=== PATIENT | female | born 1965 | race Caucasian/White ===

== ENCOUNTER 2017-07-08 10:02 | Outpatient (CLI) | payer BC ==
[2017-07-08 10:21] LABS: Basophils % (Auto) 0.5 % (0.0-1.8); Eosinophils % (Auto) 1.8 % (0.0-4.3); Hematocrit 31.1 % (30.3-42.9); Hemoglobin 10.1 gm/dl (10.1-14.3); Mean Corpuscular HGB Conc 33 % (30-34); Mean Corpuscular Hemoglobin 28 pg (28-32); Mean Corpuscular Volume 87 fl (79-97); Platelet Count 274 K/mm3 (140-440); Red Blood Count 3.58 M/mm3 (3.65-5.03); Red Cell Distribution Width 19.8 % (13.2-15.2); White Blood Count 5.7 K/mm3 (4.5-11.0)
[2017-07-08 10:48] LABS: Alanine Aminotransferase 19 units/L (7-56); Albumin 4.1 g/dL (3.9-5); Albumin/Globulin Ratio 1.4 %; Alkaline Phosphatase 46 units/L (35-129); Anion Gap 21 mmol/L; BUN/Creatinine Ratio 16; Blood Urea Nitrogen 11 mg/dL (7-17); Calcium 9.2 mg/dL (8.4-10.2); Carbon Dioxide 22 mmol/L (22-30); Chloride 99.7 mmol/L (98-107); Glucose 93 mg/dL (65-100); Potassium 3.5 mmol/L (3.6-5.0); Sodium 139 mmol/L (137-145); Total Protein 7.1 g/dL (6.3-8.2); Uric Acid 4.2 mg/dL (3.5-7.6)
[2017-07-08 10:51] LABS: Erythrocyte Sedimentation Rate 35 mm/Hr (0-20)
== END 2017-07-08 10:03 | disposition home or self-care (01) ==
LOC: LAB 10:02
PROVIDERS: ATTEND Family Medicine
DX: Z00.01 Encounter for general adult medical examination with abnormal findings (principal); D50.9 Iron deficiency anemia, unspecified
CPT/HCPCS: 36415; 80053; 82306; 82607; 82747; 84443; 84550; 85025; 85652; 86140

== ENCOUNTER 2017-07-17 10:11 | Observation (INO) | payer BC ==
--- NOTE | 2017-07-13 14:03 | History and Physical Report ---
History of Present Illness Date of examination: 07/10/17 Chief complaint: Menorrhagia and anemia History of present illness: Past History : 2 Term Births: 2 Living Children: 2 # 1 Delivery type: # 2 Delivery date: 1991 Delivery type: VISUAL DESIGNER History Operations: x2 Tubal Ligation Abnormal PAP: negative Infection History Hx of STD: None Active Medications (reviewed today): OXYCODONE-ACETAMINOPHEN 5-325 MG ORAL TABLET (OXYCODONE-ACETAMINOPHEN) 1-2po q6h TAYTULLA 1-20 MG-MCG(24) ORAL CAPSULE (NORETHIN ISAIAH-ETH ESTRAD-FE) 1 tab po tid x3 days, 1 tab po bid x3days then qd IBUPROFEN 600 MG ORAL TABLET (IBUPROFEN) 1 po q6hrs as directed prn BYSTOLIC TABLET (NEBIVOLOL HCL TABS) prn TABLET ( VIT-FE FUMARATE-FA TABS) VITAMIN C 100 MG ORAL TABLET (ASCORBIC ACID) FERROUSUL 325 (65 Fe) MG ORAL TABLET (FERROUS SULFATE) Current Allergies (reviewed today): No known allergies Past Medical History: Reviewed history from 04/23/2017 and no changes required: Anemia Cardiac arrhytmia SVT Past Surgical History: Reviewed history from 04/23/2017 and no changes required: x2 Tubal Ligation Family History Summary: Reviewed history and no changes required: 07/13/2017 Other family member - Has No Family History of Biliary Tract Cancer - Entered On : 04/29/2017 Other family member - Has No Family History of Breast Cancer - Entered On: 04/29 Other family member - Has No Family History of Brain Cancer - Entered On: 2016 Other family member - Has No Family History of Colon Cancer - Entered On: 2016 Other family member - Has No Family History of DVT/PE on OCP - Entered On: 04/29 Other family member - Has No Family History of Kidney/Urinary Tract Cancer - Entered On: 04/29/2017 Other family member - Has No Family History of Ovarvian Cancer - Entered On: 05/2017 Other family member - Has No Family History of Pancreatic Cancer - Entered On: 04/29/2017 Other family member - Has No Family History of Stomach Cancer - Entered On: 05/2017 Other family member - Has No Family History of Small Bowel Cancer - Entered On: 04/29/2017 Other family member - Has No Family History of Uterine Cancer - Entered On: 05/2017 Social History: Reviewed history from 04/23/2017 and no changes required: Patient is Smoking History: Patient has never smoked. Risk Factors: PAP Smear History: Date of Last PAP Smear: 04/23/2017 Previous Tobacco Use: Signed On - 04/23/2017 Smoked Tobacco Use: Never smoker Drug use: no Previous Alcohol Use: Signed On - 04/23/2017 Alcohol use: yes Drinks per day: social Exercise: no PAP Smear History: Date of Last PAP Smear: 04/23/2017 Review of Systems General Denies fever, chills, sweats, anorexia, fatigue, weakness, malaise, weight loss and sleep disorder. Complains of menorrhagia. Denies vaginal discharge, incontinence, dysuria, hematuria, urinary frequency, amenorrhea, abnormal vaginal bleeding, pelvic pain, genital sores, decreased libido, painful periods, painful sex, urinary urgency, hot flashes, vaginal dryness, vaginal itching and vaginal odor. CV Denies chest pains, palpitations, syncope, dyspnea on exertion, orthopnea, PND and peripheral edema. Resp Denies cough, dyspnea at rest, excessive sputum, hemoptysis, wheezing and pleurisy. GI Denies nausea, vomiting, diarrhea, constipation, change in bowel habits, abdominal pain, melena, hematochezia, jaundice, gas/bloating, indigestion/ heartburn, dysphagia and odynophagia. Endo Denies cold intolerance, heat intolerance, polydipsia, polyphagia, polyuria and unusual weight change. Breast Denies left breast lump, right breast lump, nipple discharge, bloody discharge from nipple, breast pain, abnormal mammogram and breast enlargement. MS Denies back pain, joint pain, joint swelling, muscle cramps, muscle weakness, stiffness, arthritis, sciatica, restless legs, leg pain at night and leg pain with exertion. Derm Denies rash, itching, dryness and suspicious lesions. Neuro Denies paralysis, paresthesias, headache, seizures, tremors, vertigo, transient blindness, frequent falls, frequent headaches and difficulty walking. Psych Denies depression, anxiety, irritability and mood swings. Eyes Denies blurring, diplopia, irritation, discharge, vision loss, eye pain and photophobia. ENT Denies earache, ear discharge, tinnitus, decreased hearing, nasal congestion, nosebleeds, sore throat and hoarseness. Allergy Denies urticaria, allergic rash, hay fever and recurrent infections. Heme Denies abnormal bruising, bleeding and enlarged lymph nodes. Physical Exam Appearance: well developed, well nourished, no acute distress Other Exams Abdomen: soft, non-tender, no masses, Skin: no ulcers, xanthomas Extremities: normal alignment, no joint enlargement, crepitus, masses or tenderness; normal tone and strength Genitourinary Exam Vagina: normal appearance, no discharge, lesions. No evidence of cystocele or rectocele. Cervix: normal appearance,no discharge, ? cervical polyp Uterus: normal position, midline, mobile Adnexa: no masses or tenderness Impression & Recommendations: Problem # 1: Excessive and frequent menstruation with irregular cycle (ICD- 626.6) (XTG08-T70.1) Diagnosis explained to patient . Questions answered. Discussed with patient various medical and surgical therapies common for treatment: Hormonal/medical therapy,endometrial ablation or hysterectomy. She desires to proceed with hysterectomy Consent reviewed and signed . Possible laparoscopy or laparotomy explained to patient. The risks and alternatives for this surgery were reviewed with the patient. She was informed of possible bleeding, infection, injury to bowel, bladder, ureters or other adjacent organs. She was informed after her ovaries are removed she will be in menopause and she may not at increased risks for other morbidities and cancers. The patient was instructed/informed the following: The normal length of hospital stay for this procedure. Nothing to eat or drink after midnight the evening prior to surgery. Clear liquids the day before surgery. Fleets enema the day prior to surgery. Pre-op instruction sheets given. Wound care instructions given. Infection precautions reviewed, patient to call for any signs or symptoms of infection. The usual discomforts associated with this procedure were detailed. Proper use of pain medicines was reviewed. Patient was given ample opportunity to have all her questions answered before signing informed consent. Problem # 2: Anemia secondary to blood loss (chronic) (ICD-280.0) (QTU07-S36.0) Medications Added to Medication List This Visit: 1) Oxycodone-acetaminophen 5-325 Mg Oral Tablet (Oxycodone-acetaminophen) .... 1-2po q6h 2) Ibuprofen 600 Mg Oral Tablet (Ibuprofen) .... 1 po q6hrs as directed prn Prescriptions: IBUPROFEN 600 MG ORAL TABLET (IBUPROFEN) 1 po q6hrs as directed prn #30 x 1 Entered and Authorized by: Anahi Alvarado MD Method used: Print then Give to Patient RxID: [id number] OXYCODONE-ACETAMINOPHEN 5-325 MG ORAL TABLET (OXYCODONE-ACETAMINOPHEN) 1-2po q6h #30 x 0 Entered and Authorized by: Anahi Alvarado MD Method used: Print then Give to Patient RxID: [id number] Medications and Allergies Active Meds: Active Medications Cefazolin Sodium (Ancef/Sterile Water 2 Gm/20 Ml) 2 gm in 20 mls @ 80 mls/hr IV PREOP NR PRN Reason: Protocol Assessment and Plan - Patient Problems (1) Menorrhagia Status: Chronic (2) Anemia Status: Chronic Qualifiers: Iron deficiency anemia type: chronic blood loss
--- NOTE | 2017-07-16 10:33 | Anesthesia Consultation ---
Anesthesia Consult and Med Hx Date of service: 07/17/17 - Airway Anesthetic Teeth Evaluation: Good ROM Head & Neck: Adequate Mental/Hyoid Distance: Adequate Mallampati Class: Class II Intubation Access Assessment: Good - Pulmonary Exam CTA: Yes - Cardiac Exam Cardiac Exam: RRR - Pre-Operative Health Status ASA Pre-Surgery Classification: ASA2 Proposed Anesthetic Plan: General Nerve Block: TAP - Cardiovascular System Hx Cardia Arrhythmia: Yes (SVT) - Central Nervous System Hx Psychiatric Problems: No - Hematic Hx Anemia: Yes (past hx) - Other Systems Hx Alcohol Use: Yes (occas) Hx Cancer: No - Additional Comments Anesthesia Medical History Comments: H/O ? intrathecal air after epidural placement
[~2017-07-17 10:11] MED LIST: ANCEF/STERILE WATER 2 GM/20 ML 2 GM/20 ML SYRINGE IV NR; NACL 0.9% 1000 ML 1,000 ML IV SCH; NEURONTIN PO NR; PEPCID PO NR; SUBLIMAZE IV NR; TRANSDERM-SCOP TD NR; VERSED IV NR
[2017-07-17 11:00] LABS: Hematocrit 33.3 % (30.3-42.9); Hemoglobin 10.6 gm/dl (10.1-14.3); Mean Corpuscular HGB Conc 32 % (30-34); Mean Corpuscular Hemoglobin 28 pg (28-32); Mean Corpuscular Volume 86 fl (79-97); Platelet Count 297 K/mm3 (140-440); Red Blood Count 3.87 M/mm3 (3.65-5.03); Red Cell Distribution Width 20.5 % (13.2-15.2)
[2017-07-17] MEDS ORDERED: ZOFRAN IV PRN ×2 (11:00→16:51)
[2017-07-17] MEDS ORDERED: MORPHINE IV PRN ×3 (11:00→22:00)
[2017-07-17] MEDS ORDERED: DECADRON ONE ×2 (11:16→15:02)
[2017-07-17] MEDS ORDERED: MARCAINE 0.5% 30 ML INFILTRATI ONE ×2 (11:16→12:14)
[2017-07-17] MEDS ORDERED: XYLOCAINE 1% 20 mL ONE (11:17)
[2017-07-17] MEDS ORDERED: NEOSPORIN GU IR ONE ×2 (12:14→14:05)
[2017-07-17] MEDS ORDERED: METHYLENE BLUE ONE (12:17)
[2017-07-17] MEDS ORDERED: XYLOCAINE MPF 2% ONE (12:20)
[2017-07-17] MEDS ORDERED: ZEMURON IV ONE (12:21)
[2017-07-17] MEDS ORDERED: DILAUDID ONE (12:21)
[2017-07-17] MEDS ORDERED: DIPRIVAN 10 MG/ML IV ONE (12:22)
[2017-07-17] MEDS ORDERED: CALCIUM CHLORIDE IV ONE (12:35)
[2017-07-17] MEDS ORDERED: THROMBIN (BOVINE) TP ONE (12:35)
--- NOTE | 2017-07-17 12:37 | Anesthesia Day of Surgery ---
Anesthesia Day of Surgery - Day of Surgery Patient Examined: Yes Patient H&P Reviewed: Yes Patient is NPO: Yes
[2017-07-17] MEDS ORDERED: NACL 0.9% 1000 ML 1,000 ML ONE (13:26)
[2017-07-17] MEDS ORDERED: ePHEDrine SULFATE ONE (13:30)
[2017-07-17] MEDS ORDERED: NEO SYNEPHRINE/NS Syringe(OR USE) IV ONE ×2 (13:55→14:57)
[2017-07-17] MEDS ORDERED: NACL 0.9% IR ONE (14:05)
[2017-07-17] MEDS ORDERED: ZOFRAN ONE (15:02)
[2017-07-17] MEDS ORDERED: ROBINUL ONE (15:02)
[2017-07-17] MEDS ORDERED: NEOSTIGMINE ONE (15:02)
--- NOTE | 2017-07-17 15:56 | Post Operative Note ---
Pre-op diagnosis: menorrhagia, h/o anemia Post-op diagnosis: other (same with vaginal laceration) Procedure: RATH/ BSO Anesthesia: GETA Surgeon: FIDELINA ROSARIO Estimated blood loss: 50-100ml Pathology: list (uterus, cervix, tubes and ovaries) Specimen disposition: to lab Condition: stable Disposition: PACU
[2017-07-17] MEDS: MORPHINE IV PRN ×2 (16:40→16:55)
[2017-07-17] MEDS ORDERED: MORPHINE ONE ×2 (16:44→16:58)
[2017-07-17] MEDS ORDERED: TYLENOL PR PRN (16:51)
[2017-07-17] MEDS ORDERED: NARCAN 0.4 MG/1 ML IV PRN (16:51)
[2017-07-17] MEDS ORDERED: ANCEF/NS 1 GM/50 ML 1 GM/50 ML BAG IV SCH (16:51)
[2017-07-17] MEDS ORDERED: PERCOCET 5/325 PO PRN (16:51)
[2017-07-17] MEDS ORDERED: REGLAN IV PRN (16:51)
[2017-07-17] MEDS ORDERED: REGLAN PO PRN (16:51)
[2017-07-17] MEDS ORDERED: TORADOL IV ONE (16:55)
--- NOTE | 2017-07-17 18:01 | Post Anesthesia Evaluation ---
- Post Anesthesia Evaluation Patient Participated: Yes Airway Patent: Yes Stable Respiratory Function: Yes Nausea/Vomiting: No Temp > 96.8F: Yes Pain Manageable: Yes Adequeate Hydration: Yes Anesthesia Complications: No Block Receding Appropriately: Not Applicable Patient on Ventilator: No
[2017-07-17] MEDS: LACTATED RINGERS 1,000 ML IV SCH (18:27)
--- NOTE | 2017-07-17 19:08 | Operative Report ---
Operative Report Operative Report: Date: 07/17/2017 Preoperative diagnosis: 1. Menorrhagia unresponsive to medical management 2. History of anemia Postoperative diagnosis: 1. Menorrhagia unresponsive to medical management 2. History of anemia 3. Vaginal laceration Procedure: 1. Robotic-assisted laparoscopic total hysterectomy 2. Robotic-assisted laparoscopic bilateral salpingo-oophorectomy 3. Repair of vaginal laceration Surgeon: Anahi Alvarado MD Drag Seiner: Tawny Spain Anesthesiologist: Kathy Kerns M.D. Anesthesia: General endotracheal anesthesia EBL: Approximately 50 mL Findings: Exam under anesthesia was unremarkable. Uterus was sounded to approximately 10 cm. Extremely narrow proximal vagina. Grossly normal uterus, tubes and ovaries. Procedure: Patient was taken to the OR and placed in the supine position. General anesthesia was induced and an oral gastric tube was placed. Her neck and head were placed on foam support. Foam eye protection with goggles were secured in place. Then foam face protection was placed and secured. Foam shoulder pads were then positioned on her shoulders for Trendelenburg positioning. She was then placed in dorsolithotomy position. Exam under anesthesia as above. The abdomen and vagina were then prepped and draped in the usual sterile fashion. Timeout was performed. A Skaggs catheter was inserted into the bladder with drainage of clear yellow urine. The operative speculum was introduced into the vagina and the anterior lip of the cervix was grasped with single-toothed tenaculum. The uterus was sounded to 10 cm. The cervix was progressively dilated to allow the medium size V care uterine manipulator. The bulb of the manipulator was inflated and the speculum and tenaculum were removed. The cup of the manipulator was placed around the cervix and the blue occluder of the manipulator was properly positioned in the vagina. A laparotomy sponge that was saturated with a solution of polymyxin and saline was placed in the vagina to ensure pneumoperitoneum. Sterile gloves were placed and attention was turned to the abdomen. A 10 mm vertical supraumbilical incision was made approximately 10 cm superior to the elevated fundus of the uterus. A 12 mm trocar with the laparoscope and camera attached was introduced through this incision under direct visualization. The abdomen was insufflated. No obvious bowel, bladder, ureteral, or major vascular injury was noted. The patient was then placed in steep Trendelenburg position and the following trochars were placed under direct visualization: 8 mm robot trochars were placed through incisions made in the bilateral midclavicular lower abdominal region approximately 10 cm lateral and approximately 2 cm below the midline incision, and a 5 mm trocar was placed through an incision made in the right lower lateral pelvis approximately 2 cm superior to the iliac crest. The 10 mm laparoscope was then replaced by a 5 mm laparoscope that was placed through the 5 millimeter lateral trocar. At this point Dr. Isaac was present to inspect the anterior abdominal wall. Dr. Isaac states she will speak with the patient after she's been discharged concerning findings of anterior abdominal wall. The 12 mm trocar was then removed in the Gallo Red fascial closure device was placed through the incision and a 0 Vicryl was placed through the fascia. Once the suture was secured the 12 mm trocar was reintroduced. Once the trochars were in the appropriate positions, the da Shyla robot system was engaged. The EndoShears and bipolar device was placed through the 8 mm trochars and positioned then attention was turned to the console. Then the utero-ovarian ligaments were clamped. cauterized and incised bilaterally using 30 W of energy. Then the round ligaments were clamped, cauterized and incised bilaterally. The anterior leaf of the broad ligament was elevated and careful blunt and sharp dissection the bladder flap was created and dissected away from the lower uterine segment and cervix. The posterior leaf of the broad ligament was dissected away from the uterine vessels. The cup of the uterine manipulator was palpated both anteriorly and posteriorly. Course of the ureters was visualized and was confirmed to be away from the operative field. The uterine vessels were then clamped and cauterized bilaterally. Blanching of the uterus was then noted. Attention was again turned to the anterior lower uterine segment and the bladder was confirmed to be away from the operative field. Then attention was turned again to the posterior where the cup of the manipulator was palpated and a colpotomy was performed down to the cup. The incision was extended in the lateral position the uterine vessels that were again clamped and cauterized and incised. Continuing along the cup of the manipulator in a circumferential manner the colpotomy was completed. Sterile gloves were placed. The uterus and cervix were then removed through the vaginal incision. There was some difficulty with removing the cervix and uterus from the vagina because of the narrowing of the proximal vagina and the tenacula continue to tear through the uterine and cervical tissue suggesting possible adenomyosis. Once cervix and uterus are removed attention was again turned to the console where bilateral salpingo-oophorectomy was performed. Both tubes and ovaries were removed through the vagina. The pelvis was irrigated with warm normal saline. The proximal laceration on the left lateral aspect of the vagina was visualized. A moist laparotomy sponge was placed in the vagina to maintain pneumoperitoneum. The vagina cuff was reapproximated using V LOC 180 suture in a simple running stitch. Then a J stitch was performed to secure the suture. Again the pelvis was copiously irrigated with polymixin in warm normal saline. The laparotomy sponge was removed from the vagina. No bowel, bladder, ureteral or major vascular injury was noted. Once hemostasis was noted, platelet rich plasma was applied to the operative field to ensure hemostasis. Then platelet poor plasma was applied to the operative field to decrease formation of adhesions. Again hemostasis was noted. Grossly normal appendix was noted. Then the instruments were removed, the robot was disengaged. The 12 mm trocar was removed and the fascia was ligated with the 0 Vicryl suture that was placed at the beginning of the procedure. The patient was taken out of Trendelenburg position, the abdomen was desufflated, the remaining trochars were removed. Incisions were reapproximated using 4-0 Vicryl in a subcuticular manner. The vaginal laceration was then approximated using 3-0 Vicryl in a running interlocking stitch fashion. Hemostasis was noted. Clear yellow urine was draining into the Skaggs bag from the bladder at the end of the procedure. Patient was taken to recovery room in stable condition.
--- NOTE | 2017-07-17 19:50 | Event Note ---
Date: 07/17/17 Patient is resting in bed. She is easily arousable. Response to questions appropriately. States she does not want Morphine but would rather try Percocet for pain control. Plan for pain management was discussed. Operative findings and procedures were explained. She was informed of the vaginal laceration that occur while removing the uterus and cervix through the vagina. Questions were encouraged and answered. She was given the following discharge instructions: 1. Ambulate approximately 1 mile on your property a day 2. Do not exercise 3. No sex 4. No driving 5. Eat small meals frequently 6. Drinks 64 ounces of water a day 7. Void frequently to avoid having pressure on the vaginal cuff.
[2017-07-17] MEDS: TORADOL IV SCH (22:09)
[2017-07-17] MEDS: PEPCID IV SCH (22:09)
[2017-07-17] MEDS: ceFAZolin 1 GM in NACL 0.9% 20 ML IV SCH (22:20)
[2017-07-18] MEDS: LACTATED RINGERS 1,000 ML IV SCH (01:51)
[2017-07-18] MEDS: TYLENOL PO SCH ×2 (02:00→08:00)
[2017-07-18] MEDS: TORADOL IV SCH ×2 (04:01→12:30)
[2017-07-18 06:03] LABS: Hematocrit 29.9 % (30.3-42.9); Hemoglobin 9.6 gm/dl (10.1-14.3)
--- NOTE | 2017-07-18 07:02 | Discharge Summary ---
Providers - Providers Date of Admission: 07/17/17 15:40 Date of discharge: 07/18/17 Attending physician: FIDELINA ROSARIO Primary care physician: SONIDO ZHOU Hospitalization Condition: Good Procedures: RATH/BSO, repair of vaginal laceration Hospital course: uncomplicated Disposition: DC-01 TO HOME OR SELFCARE - Discharge Diagnoses (1) Menorrhagia Status: Chronic (2) Anemia Status: Chronic Qualifiers: Iron deficiency anemia type: chronic blood loss (3) History of robot-assisted laparoscopic hysterectomy Status: Acute (4) S/P bilateral salpingo-oophorectomy Status: Acute Core Measure Documentation - Palliative Care Palliative Care/ Comfort Measures: Not Applicable - Core Measures Any of the following diagnoses?: none Exam - Constitutional Vitals: Temp Pulse Resp BP Pulse Ox 98.5 F 62 18 103/42 96 07/18/17 02:25 07/18/17 02:25 07/18/17 02:25 07/18/17 02:25 07/17/17 19:25 General appearance: Present: no acute distress - Respiratory Respiratory effort: normal Respiratory: bilateral: CTA - Cardiovascular Rhythm: regular - Extremities Extremities: no ischemia, No edema - Abdominal General gastrointestinal: Present: soft, non-tender, non-distended, normal bowel sounds - Integumentary Integumentary: Present: clear, warm, dry. Absent: erythema (Incisions: c/d/i) - Psychiatric Psychiatric: appropriate mood/affect, intact judgment & insight Plan Weight Bearing Status: Full Weight Bearing Diet: regular Wound: open to air, keep clean and dry Special Instructions: no heavy lifting (>25#) Additional Instructions: 1. Ambulate approximately 1 mile on your property a day. 2. Do not exercise. 3. No sex. 4. No driving. 5. Eat small meals frequently. 6. Drinks 64 ounces of water a day. 7. Void frequently to avoid having pressure on the vaginal cuff. Follow up with: FIDELINA ROSARIO MD [Staff Physician] - 7 Days SONIDO ZHOU MD [Primary Care Provider] - 7 Days Prescriptions: metroNIDAZOLE [Metronidazole] 500 mg PO BID #14 tablet
[2017-07-18] MEDS: ceFAZolin 1 GM in NACL 0.9% 20 ML IV SCH (08:00)
[2017-07-18] MEDS: PEPCID IV SCH (09:30)
[2017-07-18 14:52] VITALS: BP 91/37
== END 2017-07-18 16:00 | disposition home or self-care (01) ==
LOC: OR 10:11 → OB 15:40 → EEVIPCON 15:40
PROVIDERS: ADMIT Obstetrics & Gynecology; ATTEND Obstetrics & Gynecology
DX: N92.0 Excessive and frequent menstruation with regular cycle (principal); S31.41XA Laceration without foreign body of vagina and vulva, initial encounter; D64.9 Anemia, unspecified; X58.XXXA Exposure to other specified factors, initial encounter; Y92.89 Other specified places as the place of occurrence of the external cause; Y93.89 Activity, other specified; Y99.8 Other external cause status; Z98.890 Other specified postprocedural states; Z90.722 Acquired absence of ovaries, bilateral
CPT/HCPCS: 36415; 57200; 58571; 64450; 81025; 85014; 85018; 85027; 86850; 86900; 86901; 88307; 96374; 96375; 96376; A4217; G0378; J0690; J1100; J1170; J1885; J2250; J2270; J2370; J2405; J2704; J2710; J3010; J7030; J7120; S2900; 88302; Q9968

== ENCOUNTER 2019-03-08 10:12 | Outpatient (CLI) | payer BC ==
[2019-03-08 10:54] LABS: Basophils % (Auto) 0.5 % (0.0-1.8); Eosinophils % (Auto) 0.8 % (0.0-4.3); Hematocrit 40.4 % (30.3-42.9); Lymphocytes # (Auto) 2.7 K/mm3 (1.2-5.4); Lymphocytes % (Auto) 50.9 % (13.4-35.0); Mean Corpuscular HGB Conc 35 % (30-34); Mean Corpuscular Volume 88 fl (79-97); Monocytes # (Auto) 0.4 K/mm3 (0.0-0.8); Monocytes % (Auto) 7.5 % (0.0-7.3); Platelet Count 204 K/mm3 (140-440); Red Blood Count 4.62 M/mm3 (3.65-5.03); Red Cell Distribution Width 13.9 % (13.2-15.2)
[2019-03-08 11:12] LABS: Erythrocyte Sedimentation Rate 6 mm/Hr (0-20)
[2019-03-08 11:15] LABS: Alanine Aminotransferase 12 units/L (7-56); Albumin 4.2 g/dL (3.9-5); BUN/Creatinine Ratio 20; Blood Urea Nitrogen 14 mg/dL (7-17); Calcium 9.5 mg/dL (8.4-10.2); Chol/HDL Ratio 3.58 %; HDL Cholesterol 53 mg/dL (40-59); Hemolysis Index 5; LDL Cholesterol,Direct 141 mg/dL (50-130); Uric Acid 5.6 mg/dL (3.5-7.6)
[2019-03-12 14:25] LABS: Vitamin D, 25-OH, D2 5 ng/mL
== END 2019-03-08 10:13 | disposition home or self-care (01) ==
LOC: LAB 10:12
PROVIDERS: ATTEND Family Medicine
DX: Z00.01 Encounter for general adult medical examination with abnormal findings (principal)
CPT/HCPCS: 36415; 80053; 80061; 82306; 82607; 82627; 82672; 82747; 83001; 83036; 84144; 84443; 84550; 85025; 85652; 86140

== ENCOUNTER 2019-03-15 08:30 | Day surgery (SDC) | payer BC ==
[2019-03-15] MEDS ORDERED: NACL 0.9% 1000 ML 1,000 ML IV SCH (10:18)
--- NOTE | 2019-03-15 11:25 | Anesthesia Day of Surgery ---
Anesthesia Day of Surgery - Day of Surgery Patient Examined: Yes Patient H&P Reviewed: Yes Patient is NPO: Yes
--- NOTE | 2019-03-15 11:26 | Anesthesia Consultation ---
Anesthesia Consult and Med Hx Date of service: 03/15/19 - Airway Anesthetic Teeth Evaluation: Good (IMPLANT) ROM Head & Neck: Adequate Mental/Hyoid Distance: Adequate Mallampati Class: Class II Intubation Access Assessment: Good - Pre-Operative Health Status ASA Pre-Surgery Classification: ASA2 Proposed Anesthetic Plan: MAC - Cardiovascular System Hx Cardia Arrhythmia: Yes (SVT-last episode five years ago) - Central Nervous System Hx Psychiatric Problems: No - Hematic Hx Anemia: Yes (past hx) - Other Systems Hx Alcohol Use: Yes (occas) Hx Cancer: No
[2019-03-15] MEDS ORDERED: DIPRIVAN 10 MG/ML IV ONE ×2 (11:48→11:49)
[2019-03-15] MEDS ORDERED: INFANTS' GAS RELIEF PO ONE ×2 (11:59→12:01)
--- NOTE | 2019-03-15 12:11 | Short Stay Summary ---
Short Stay Documentation Date of service: 03/15/19 Narrative H&P: The patient presents for her first screening colonoscopy. Average risks. - History Past Medical History: No medical history Past Surgical History: hysterectomy Social history: no significant social history, , lives with family, no smoking, no alcohol abuse - Allergies and Medications Current Medications: Allergies latex Allergy (Verified 07/15/17 08:46) rash, oozing Active Medications Sodium Chloride (Nacl 0.9% 1000 Ml) 1,000 mls @ 50 mls/hr IV DIRECT NETTE - Physical exam General appearance: no acute distress, well-nourished Integumentary: no rash, no growths, no abnormal pigmentation HEENT: Atraumatic, PERRLA, EOMI, Mucous membr. moist/pink Lungs: Clear to auscultation, Normal air movement Breasts: deferred Heart: Regular rate, Normal S1, Normal S2, No murmurs Gastrointestinal: normoactive bowel sounds, no tenderness, no distended, no masses, no guarding, no organomegaly, no obese Female Genitourinary: deferred Rectal Exam: normal exam-external/orifice, normal rectal tone, no mass Extremities: no ischemia, pulses intact, pulses symmetrical, No edema, normal temperature, normal color, Full ROM Neurological: Normal gait, Normal speech, Strength at 5/5 X4 ext, Normal tone, Sensation intact, Cranial nerves 3-12 NL - Brief post op/procedure progress note Date of procedure: 03/15/19 Findings: see dictation Estimated blood loss: none Pathology: none Condition: stable - Disposition Condition at discharge: Good Disposition: DC-01 TO HOME OR SELFCARE - Discharge Diagnoses (1) Colon cancer screening Status: Acute Short Stay Discharge Plan Activity: other (no driving for 24 hours) Weight Bearing Status: Full Weight Bearing Diet: regular Follow up with: SONIDO ZHOU MD [Primary Care Provider] - 7 Days
--- NOTE | 2019-03-15 12:12 | Operative Report ---
Operative Report Operative Report: Date of procedure: 03/15/2019 Preprocedure diagnosis: Colon cancer screening, no prior studies. Average risk. Post procedure diagnosis: Normal study Procedure: Colonoscopy to the cecum Endoscopist: Dr. Snowden Anesthesia: Monitored anesthesia care per anesthesia department Estimated blood loss: 0 Medications: Monitored anesthesia care. See separate report by anesthesia for details. After careful discussion of the nature and purpose of the procedure as well as details of the technique risks benefits and alternatives the patient gave consent. Please see recent history and physical from the office. The patient was placed in the left lateral decubitus position and medicated per anesthesia. A rectal exam was performed sphincter tone was normal there were no masses palpable. The Trunityn 570 scope was passed transanally and advanced under continuous direct vision without difficulty to the cecum. The colon was well prepared. The cecum was normal. The ascending colon was normal and on forward and retroflexed views. The transverse colon, descending colon, and sigmoid colon were normal. The rectum was normal on forward and retroflexed views. The procedure was well-tolerated overall and the patient was observed in recovery. Conclusions: Normal colonoscopy to the cecum. Plan: Repeat colonoscopy in 10 years. Signed electronically: Jone Snowden M.D.
[2019-03-15] MEDS ORDERED: WATER FOR IRRIG STERILE IR ONE (12:45)
[2019-03-15 17:05] VITALS: BP 103/54
== END 2019-03-15 08:31 | disposition home or self-care (01) ==
LOC: GIO 08:30
PROVIDERS: ATTEND Internal Medicine Gastroenterology
DX: Z12.11 Encounter for screening for malignant neoplasm of colon (principal); G43.909 Migraine, unspecified, not intractable, without status migrainosus; I42.9 Cardiomyopathy, unspecified; Z79.899 Other long term (current) drug therapy; Z91.040 Latex allergy status; Z98.890 Other specified postprocedural states; Z90.722 Acquired absence of ovaries, bilateral; Z90.710 Acquired absence of both cervix and uterus; Z98.891 History of uterine scar from previous surgery; Z72.89 Other problems related to lifestyle; Z86.2 Personal history of diseases of the blood and blood-forming organs and certain disorders involving the immune mechanism
CPT/HCPCS: 45378; J2704; J7030

== ENCOUNTER 2019-11-18 09:58 | Outpatient (CLI) | payer BC ==
--- NOTE | 2019-11-18 12:04 | Magnetic Resonance Report ---
MRI RIGHT HAND WITHOUT CONTRAST INDICATION / CLINICAL INFORMATION: MAIN: PAINFUL SWOLLEN JOINTS/rheumatoid arthritis, BILATERAL HAND PAIN, SWELLING, AND STIFFNESS X 3 M ONTHS Patient motion, sequences repeated . TECHNIQUE: Multiplanar, multisequence MR images were obtained. COMPARISON: None available. FINDINGS: Bone marrow signal is unremarkable. There is mild degenerative change at the thumb carpometacarpal articulation. Joint spaces are otherwi se maintained. No periarticular edema is seen. No joint effusion. No erosions are identified. No soft tissue fluid collections. Denser and flexor tendons are unremarkable without tenosynovitis. IMPRESSION: 1. No MRI evidence of inflammatory arthropathy. 2. Osteoarthrosis type degenerative change, mild, at the thumb CMC joint. MRI LEFT HAND WITHOUT CONTRAST INDICATION / CLINICAL INFORMATION: MAIN: PAINFUL SWOLLEN JOINTS/rheumatoid arthritis, BILATERAL HAND PAIN, SWELLING, AND STIFFNESS X 3 M ONTHS Patient motion, sequences repeated . TECHNIQUE: Multiplanar, multisequence MR images were obtained. COMPARISON: None available. FINDINGS: Bone marrow signals unremarkable. No osseous erosions are seen. There is mild osteoarthrosis change at the thumb carpometacarpal articulation. Joint spaces are other monroy maintained. No joint effusions are seen. No significant soft tissue edema. Flexor and extensor tendons are unremarkable without tenosynovitis. IMPRESSION: 1. No MRI evidence of inflammatory arthropathy. 2. Mild osteoarthrosis type degenerative change at the thumb CMC joint. Signer Name: Tera Ojeda MD Signed: 11/18/2019 12:00 PM Workstation Name: [id number]
== END 2019-11-18 09:59 | disposition home or self-care (01) ==
LOC: MRI 09:58
PROVIDERS: ATTEND Family Medicine
DX: M19.042 Primary osteoarthritis, left hand (principal); M19.041 Primary osteoarthritis, right hand

== ENCOUNTER 2020-03-08 07:27 | Outpatient (CLI) | payer BC ==
[2020-03-08 08:38] LABS: Basophils % (Auto) 0.5 % (0.0-1.8); Eosinophils # (Auto) 0.1 K/mm3 (0.0-0.4); Eosinophils % (Auto) 1.2 % (0.0-4.3); Hematocrit 40.1 % (30.3-42.9); Hemoglobin 13.4 gm/dl (10.1-14.3); Lymphocytes # (Auto) 2.6 K/mm3 (1.2-5.4); Lymphocytes % (Auto) 47.9 % (13.4-35.0); Mean Corpuscular HGB Conc 33 % (30-34); Mean Corpuscular Volume 88 fl (79-97); Monocytes # (Auto) 0.4 K/mm3 (0.0-0.8); Monocytes % (Auto) 7.8 % (0.0-7.3); Platelet Count 202 K/mm3 (140-440); Red Blood Count 4.57 M/mm3 (3.65-5.03); Red Cell Distribution Width 14.4 % (13.2-15.2)
[2020-03-08 09:04] LABS: Erythrocyte Sedimentation Rate 7 mm/Hr (0-20)
--- NOTE | 2020-03-08 09:05 | XRay Report ---
BILATERAL HAND 6 VIEW(S) INDICATION / CLINICAL INFORMATION: PSORIATIC ARTHRITIS COMPARISON: None available. FINDINGS: BONES / JOINT(S): No acute fracture or subluxation. Mild bilateral thumb CMC degenerative arthrosis, right greater than left. No osseous erosions. SOFT TISSUES: No significant abnormality. ADDITIONAL FINDINGS: None. Signer Name: Peter Cunha MD Signed: 03/08/2020 9:01 AM Workstation Name: [id number]
[2020-03-08 09:06] LABS: Alanine Aminotransferase 16 units/L (7-56); Albumin 4.4 g/dL (3.9-5); BUN/Creatinine Ratio 19; Blood Urea Nitrogen 15 mg/dL (7-17); Calcium 9.6 mg/dL (8.4-10.2); Chol/HDL Ratio 3.55 %; HDL Cholesterol 54 mg/dL (40-59); Hemolysis Index 5; LDL Cholesterol,Direct 133 mg/dL (50-130); Uric Acid 5.5 mg/dL (3.5-7.6)
== END 2020-03-08 07:28 | disposition home or self-care (01) ==
LOC: LAB 07:27
PROVIDERS: ATTEND Family Medicine
DX: M19.041 Primary osteoarthritis, right hand (principal); M19.042 Primary osteoarthritis, left hand; L40.50 Arthropathic psoriasis, unspecified
CPT/HCPCS: 36415; 80053; 80061; 82306; 82607; 82747; 83036; 84443; 84550; 85025; 85652; 86140; 86200; 86431

== ENCOUNTER 2020-07-27 09:33 | Outpatient (CLI) | payer BC ==
--- NOTE | 2020-07-27 10:19 | XRay Report ---
CHEST 2 VIEWS INDICATION / CLINICAL INFORMATION: COUGH. COMPARISON: None available. FINDINGS: SUPPORT DEVICES: None. HEART / MEDIASTINUM: No significant abnormality. LUNGS / PLEURA: Clear lungs. No significant pleural effusion. No pneumothorax. ADDITIONAL FINDINGS: No significant additional findings. IMPRESSION: 1. No acute abnormality of the chest. Signer Name: David Ritchie MD Signed: 07/27/2020 10:15 AM Workstation Name: [id number]
== END 2020-07-27 09:34 | disposition home or self-care (01) ==
LOC: ECHO 09:33
PROVIDERS: ATTEND Internal Medicine
DX: R07.9 Chest pain, unspecified (principal); R00.2 Palpitations; E78.49 Other hyperlipidemia
CPT/HCPCS: 71046; 93005; 93306

== ENCOUNTER 2020-08-30 09:27 | Outpatient (CLI) | payer BC ==
--- NOTE | 2020-08-30 19:24 | Cardiac Catherization Report ---
STRESS EKG REPORT INDICATION FOR PROCEDURE: This being performed on 55-year-old female for evaluation of chest pain. Baseline EKG showed a sinus rhythm at a rate of 59 beats per minute, within normal limits. The patient exercised for 10 minutes and 7 seconds on standard Michael protocol. Attained a heart rate of 176 per minute, which is more than predicted maximal heart rate. Test was stopped due to shortness of breath and tiredness, but no chest pain. No EKG changes to suggest ischemia. Blood pressure response is appropriate with resting blood pressure of 98/56. Peak blood pressure was 139/65. FINAL IMPRESSION: 1. Very good exercise tolerance. 2. Negative for angina and negative for ischemia on the EKG. 3. Appropriate blood pressure response. No arrhythmia noted. JOB# [id number] LILLIE/LILLIAN
== END 2020-08-30 09:28 | disposition home or self-care (01) ==
LOC: CARD 09:27
PROVIDERS: ATTEND Internal Medicine
DX: R07.89 Other chest pain (principal); R00.2 Palpitations; E78.49 Other hyperlipidemia
CPT/HCPCS: 93017

== ENCOUNTER 2021-04-15 09:18 | Outpatient (CLI) | payer BC ==
[2021-04-15 10:40] LABS: Basophils % (Auto) 0.5 % (0.0-1.8); Eosinophils # (Auto) 0.1 K/mm3 (0.0-0.4); Eosinophils % (Auto) 1.5 % (0.0-4.3); Hematocrit 41.1 % (30.3-42.9); Hemoglobin 14.1 gm/dl (10.1-14.3); Lymphocytes # (Auto) 2.4 K/mm3 (1.2-5.4); Lymphocytes % (Auto) 45.8 % (13.4-35.0); Mean Corpuscular HGB Conc 34 % (30-34); Mean Corpuscular Volume 90 fl (79-97); Monocytes # (Auto) 0.5 K/mm3 (0.0-0.8); Monocytes % (Auto) 9.2 % (0.0-7.3); Platelet Count 207 K/mm3 (140-440); Red Blood Count 4.55 M/mm3 (3.65-5.03)
[2021-04-15 10:57] LABS: Bilirubin,Urine NEG (Negative); Blood,Urine NEG (Negative); Color,Urine Yellow (Yellow); Mucus,Urine FEW /HPF; Protein,Urine <15 mg/dL mg/dL (Negative); Urobilinogen,Urine < 2.0 mg/dL (<2.0)
[2021-04-15 11:08] LABS: Alanine Aminotransferase 16 units/L (7-56); Albumin 4.6 g/dL (3.9-5); Blood Urea Nitrogen 16 mg/dL (7-17); Calcium 9.8 mg/dL (8.4-10.2); Chol/HDL Ratio 3.78 %; HDL Cholesterol 56 mg/dL (40-59); Hemolysis Index 6; LDL Cholesterol,Direct 137 mg/dL (50-130); Uric Acid 4.8 mg/dL (3.5-7.6)
[2021-04-15 11:09] LABS: BUN/Creatinine Ratio 23; Erythrocyte Sedimentation Rate 6 mm/Hr (0-20)
[2021-04-15 13:35] LABS: Creatinine,Urine 155.1 mg/dL (0.1-20.0)
[2021-04-15 13:36] LABS: Microalbumin/Creatinine Ratio 7.7 ug/mg
[2021-04-18 06:00] LABS: ANA Screen, IFA Negative (Negative)
[2021-04-21 10:27] LABS: Anti-TPO Antibodies SEE SCANNED RESULT; Thyroglobulin Antibodies SEE SCANNED RESULT
== END 2021-04-15 09:19 | disposition home or self-care (01) ==
LOC: LAB 09:18
PROVIDERS: ATTEND Family Medicine
DX: M06.9 Rheumatoid arthritis, unspecified (principal); E78.2 Mixed hyperlipidemia; D64.9 Anemia, unspecified; R53.82 Chronic fatigue, unspecified; D51.3 Other dietary vitamin B12 deficiency anemia; R73.09 Other abnormal glucose
CPT/HCPCS: 36415; 80053; 80061; 81001; 82043; 82607; 82728; 82747; 82784; 83036; 83615; 83735; 84100; 84436; 84443; 84480; 84550; 85025; 85652; 86038; 86140; 86200; 86431; 86800

== ENCOUNTER 2021-09-13 14:55 | Outpatient (CLI) | payer BC ==
[2021-09-13 18:17] LABS: Erythrocyte Sedimentation Rate 6 mm/Hr (0-20)
[2021-09-13 18:33] LABS: Hematocrit 40.6 % (30.3-42.9); Hemoglobin 13.5 gm/dl (10.1-14.3); Mean Corpuscular HGB Conc 33 % (30-34); Mean Corpuscular Volume 87 fl (79-97); Platelet Count 163 K/mm3 (140-440); Red Blood Count 4.68 M/mm3 (3.65-5.03); Red Cell Distribution Width 14.3 % (13.2-15.2)
== END 2021-09-13 14:56 | disposition home or self-care (01) ==
LOC: LAB 14:55
PROVIDERS: ATTEND Internal Medicine
DX: M25.469 Effusion, unspecified knee (principal)
CPT/HCPCS: 36415; 84550; 85027; 85652; 86038; 86140

== ENCOUNTER 2021-11-06 10:45 | Outpatient (CLI) | payer BC ==
--- NOTE | 2021-11-06 13:15 | Magnetic Resonance Report ---
MRI LEFT HAND WITHOUT CONTRAST INDICATION / CLINICAL INFORMATION: M79.645 PAIN IN LEFT FINGER(S). TECHNIQUE: Multiplanar, multisequence MR images were obtained. COMPARISON: Radiographs 03/08/2020 FINDINGS: FLEXOR TENDONS: No significant abnormality. EXTENSOR TENDONS: There is an avulsion injury at the base of the long finger middle phalanx dorsally at the attachment of the extensor tendon (seen best on sagittal image 10). LIGAMENTS: No significant abnormality. BONES: There is minimal bone marrow edema within the distal aspect of the long finger proximal phalan x. Probable small avulsion fracture at the base of the long finger middle phalanx dorsally. No osseou s lesion. JOINT SPACES: No significant arthritis. Is a small effusion at the long finger PIP joint. MUSCLES: No significant abnormality. SOFT TISSUES: No significant abnormality. ADDITIONAL FINDINGS: None. IMPRESSION: 1. Minimally displaced avulsion fracture at the distal attachment of the long finger extensor tendon central slip along the dorsal aspect of the base of the long finger middle phalanx. Signer Name: Tera Ojeda MD Signed: 11/06/2021 1:10 PM Workstation Name: [id number]
== END 2021-11-06 10:46 | disposition home or self-care (01) ==
LOC: MRI 10:45
PROVIDERS: ATTEND Orthopaedic Surgery
DX: S62.633A Displaced fracture of distal phalanx of left middle finger, initial encounter for closed fracture (principal); M25.442 Effusion, left hand; X58.XXXA Exposure to other specified factors, initial encounter; Y93.89 Activity, other specified; Y92.89 Other specified places as the place of occurrence of the external cause; Y99.8 Other external cause status

== ENCOUNTER 2022-02-04 09:39 | Outpatient (CLI) | payer BC ==
[2022-02-04 11:43] LABS: Alanine Aminotransferase 17 units/L (7-56); Albumin 4.6 g/dL (3.9-5); Blood Urea Nitrogen 13 mg/dL (7-17); Calcium 9.7 mg/dL (8.4-10.2); Chol/HDL Ratio 2.83 %; HDL Cholesterol 56 mg/dL (40-59); Hemolysis Index 4; LDL Cholesterol,Direct 95 mg/dL (50-130); Uric Acid 5.4 mg/dL (3.5-7.6)
[2022-02-04 12:31] LABS: Basophils % (Auto) 0.6 % (0.0-1.8); Eosinophils # (Auto) 0.1 K/mm3 (0.0-0.4); Eosinophils % (Auto) 1.6 % (0.0-4.3); Hematocrit 41.4 % (30.3-42.9); Hemoglobin 13.6 gm/dl (10.1-14.3); Lymphocytes # (Auto) 2.6 K/mm3 (1.2-5.4); Lymphocytes % (Auto) 52.4 % (13.4-35.0); Mean Corpuscular HGB Conc 33 % (30-34); Mean Corpuscular Volume 89 fl (79-97); Monocytes # (Auto) 0.4 K/mm3 (0.0-0.8); Monocytes % (Auto) 7.6 % (0.0-7.3); Platelet Count 204 K/mm3 (140-440); Red Blood Count 4.64 M/mm3 (3.65-5.03); Red Cell Distribution Width 14.2 % (13.2-15.2)
[2022-02-04 12:32] LABS: BUN/Creatinine Ratio 19
[2022-02-04 13:19] LABS: Erythrocyte Sedimentation Rate 5 mm/Hr (0-20)
[2022-02-04 14:17] LABS: RBC,Urine < 1.0 /HPF (0.0-6.0); WBC,Urine < 1.0 /HPF (0.0-6.0)
[2022-02-04 15:14] LABS: Bilirubin,Urine Negative (Negative); Color,Urine Yellow (Yellow)
[2022-02-04 15:15] LABS: Blood,Urine Negative (Negative); Protein,Urine <15 mg/dL mg/dL (Negative)
[2022-02-04 15:27] LABS: Creatinine,Urine 69.3 mg/dL (0.1-20.0)
[2022-02-04 15:29] LABS: Microalbumin/Creatinine Ratio 17.3 ug/mg
== END 2022-02-04 09:40 | disposition home or self-care (01) ==
LOC: LAB 09:39
PROVIDERS: ATTEND Family Medicine
DX: K21.9 Gastro-esophageal reflux disease without esophagitis (principal); E78.2 Mixed hyperlipidemia; G93.3 Postviral and related fatigue syndromes; D51.3 Other dietary vitamin B12 deficiency anemia; E55.9 Vitamin D deficiency, unspecified; J45.20 Mild intermittent asthma, uncomplicated; M06.00 Rheumatoid arthritis without rheumatoid factor, unspecified site; M19.049 Primary osteoarthritis, unspecified hand
CPT/HCPCS: 36415; 80053; 80061; 81001; 82043; 84443; 84550; 85025; 85652; 86140

== ENCOUNTER 2022-02-14 08:01 | Outpatient (CLI) | payer BC ==
--- NOTE | 2022-02-14 12:20 | Magnetic Resonance Report ---
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 TECHNIQUE: Multiplanar, multisequence MR images of the brain were obtained. COMPARISON: None available. FINDINGS: INTRACRANIAL: No restricted diffusion. No hemorrhage. Ventricular caliber is normal. No extra-axial c ollection. No mass. No herniation. Major intracranial vascular flow voids are preserved. Empty appea julio césar of the sella ORBITS: No significant abnormality of visualized orbits. SINUSES / MASTOIDS: No significant abnormality of visualized sinuses and mastoid air cells. ADDITIONAL FINDINGS: None. IMPRESSION: 1. No acute intracranial abnormality. 2. Empty appearance of sella is a common finding which can be seen in normal asymptomatic individuals . However, there is an association with intracranial hypertension in the correct clinical setting. Signer Name: Bryan Caldwell MD Signed: 02/14/2022 12:16 PM Workstation Name: [id number]
== END 2022-02-14 08:02 | disposition home or self-care (01) ==
LOC: MRI 08:01
PROVIDERS: ATTEND Psychiatry & Neurology Neurology
DX: M79.2 Neuralgia and neuritis, unspecified (principal); M31.6 Other giant cell arteritis
CPT/HCPCS: 70551